=== PATIENT | female | born 1970 | race Caucasian/White ===

== ENCOUNTER 2021-01-30 16:06 | Emergency (ER) | payer MEDICARE, MEDICAID, SELFPAY ==
--- NOTE | ~2021-01-30 | XR_ITS ---
EXAMINATION: XR CHEST CLINICAL INFORMATION: Dyspnea COMPARISON: Chest radiograph 09/04/2015 TECHNIQUE: Frontal view of the chest was obtained. FINDINGS: No significant abnormality is noted involving the heart, lungs, mediastinum, bony thorax or soft tissues. XR/XR chest 1V IMPRESSION: Unremarkable examination.
--- NOTE | 2021-01-30 16:14 | ECG_ITS ---
Test Reason : CHEST PAIN Blood Pressure : / mmHG Vent. Rate : 089 BPM Atrial Rate : 089 BPM P-R Int : 134 ms QRS Dur : 086 ms QT Int : 366 ms P-R-T Axes : 045 002 022 degrees QTc Int : 445 ms Normal sinus rhythm Normal ECG When compared with ECG of 02-NOV-2017 10:18, No significant change was found Referred By: Cat Feng Electronically Signed By:AMADOR GOMES
--- NOTE | 2021-01-30 16:14 | ED_ITS ---
HPI - URI/Sore Throat General Chief Complaint: General Medical Stated Complaint: covid+,cough,bodyaches Time Seen by Provider: 01/30/21 16:08 Source: patient Mode of arrival: ambulatory Limitations: no limitations History of Present Illness HPI Narrative: 50-year-old female presents with upper respiratory symptoms c onsistent with her positive COVID-19 diagnosis yesterday, also reports chest pain and fatigue. MD elicited complaint: fever, cough, sore throat and nasal congestion Onset (ago): day(s) (1) Consistency: constant Severity: moderate Description of mucous: clear and watery Able to tolerate fluids by mouth: Yes Exacerbating factors: exertion Relieving factors: nothing Associated symptoms: fever, chills, myalgias, headache, nasal congestion, cough and chest pain Treatments prior to arrival: none Related Data Allergies Allergy/AdvReac Type Severity Reaction Status Date / Time No Known Allergies Allergy Unverified 02/08/20 16:29 [No Known Allergies*] Review of Systems Review of Systems: Constitutional: positive Fever, positive Chills, positive fatigue, positive Malaise ENT/Mouth: positive sore throat, positive runny nose Eyes: No Discharge Cardiovascular: Positive Chest Pain, positive SOB Respiratory: Positive Cough, No Sputum, No Wheezing, No Smoke Exposure, No Dyspnea Gastrointestinal: No Nausea, No Vomiting, No Diarrhea Genitourinary: no irregular bleeding, No Dysuria, No Urinary Frequency, No Hematuria, No Urinary Incontinence, No Urgency, No Flank Pain, Musculoskeletal: positive Myalgia Skin: No rash Neuro: Positive Headache Yes all other systems are reviewed and are negative PMFSH Past Medical History Attestation statement: The following information was validated with the patient. Source: old records reviewed Medical History Depression Diabetes GERD (gastroesophageal reflux disease) Social History Social History Advance Directives: No Patient : No Physical Exam Vital Signs: Vital Signs: Last Vital Signs Temp 99 F 01/30/21 16:23 Pulse 87 01/30/21 16:23 Resp 18 01/30/21 16:23 BP 117/81 01/30/21 16:23 Pulse Ox 99 01/30/21 16:23 Body Mass Index 33.8 Appearance: Alert. Oriented X3. Mild distress. Afebrile. Eyes: Pupils equal, round and reactive to light. Sclera nonicteric. ENT: Pharynx normal. Moist mucous membranes. Neck: Normal inspection. Neck supple. CVS: Normal heart rate and rhythm. Pulses normal. Respiratory: No respiratory distress. Breath sounds normal. Chest wall nontender to palpation. Abdomen: Soft and nontender. Normoactive bowel sounds all 4 quadrants. Skin: Skin warm and dry. Normal skin color. Normal skin turgor. Extremities: No lower extremity edema. Moves all extremities against resistance. Strength 5/5. Neuro: No motor deficit. No sensory deficit. Cranial nerves 2-12 intact. No focal neural deficits. Course Course Course Narrative: 50-year-old female presents with symptoms consistent with COVID-19. Was diagnosed yesterday. States that she now has chest pain and feels very fatigued. Patient is sitting comfortably in her stretcher, even unlabored respirations, 18 breaths per minute, lung sounds clear auscultation, O2 sat 99% on room air, no pain on inspiration. Will obtain labs, chest x-ray and EKG. 6:22 p.m. Chest x-ray is negative, EKG is normal sinus, H&H is 11.0/33.8. Chemistries are pending. MDM - URI/Sore Throat Differential Diagnosis Differential diagnosis: Likely upper respiratory infection, viral infection and pharyngitis Medical Records Attestation: I reviewed the patient's medical records. Lab Data Attestation: I reviewed the patient's lab results. Result diagrams: 01/30/21 17:49 01/30/21 17:49 Labs: Lab Results 01/30/21 01/30/21 01/30/21 Range/Units 17:49 17:49 17:49 WBC 4.9 (4.8-10.8) X10*3/uL RBC 4.08 L (4.20-5.50) X10*6/uL Hgb 11.0 L (12.0-16.0) g/dl Hct 33.8 L (37-47) % MCV 82.8 (80-98) fL MCH 27.0 (27.0-33.0) pg MCHC 32.5 (31.0-35.0) g/dl RDW 13.5 (11.0-16.0) % Plt Count 198 (160-400) X10*3/uL MPV 11.3 (9.4-12.3) fL Immature Gran % (Auto) 0.2 (0.0-0.4) % Neut % (Auto) 55.5 (45-73) % Lymph % (Auto) 37.8 (20-40) % [place] % (Auto) 5.9 (2-11) % Eos % (Auto) 0.4 (0-4) % Baso % (Auto) 0.2 (0-2) % Lymph # (Auto) 1.9 (1.2-4.9) X10*3/uL [place] # (Auto) 0.3 (0.1-1.2) X10*3/uL Eos # (Auto) 0.0 (0.0-0.4) X10*3/uL Baso # (Auto) 0.0 (0.0-0.2) X10*3/uL Abs Immat Gran (auto) 0.01 (0.00-0.03) X10*3/uL Absolute Neuts (auto) 2.7 (2.0-8.3) X10*3/uL Absolute Nucleated RBC 0.000 (0.0-0.012) X10*3/uL Nucleated RBC % (auto) 0.0 (0.0-0.2) /100WBC Sodium 142 (135-145) mmol/L Potassium 3.5 (3.3-5.1) mmol/L Chloride 108 (96-108) mmol/L Carbon Dioxide 25 (22-29) mmol/L Anion Gap 13 (12-20) BUN 8 L (9-16) mg/dL Creatinine 0.79 (0.5-1.4) mg/dL Estim Creat Clear Calc 85.5 Estimated GFR > 60 Random Glucose 97 (60-115) mg/dL Calcium 9.5 (8.4-10.2) mg/dL Troponin I High Sens < 3.5 (<3.5-17.0) ng/L Imaging Data Chest x-ray: Attestation: I personally reviewed and interpreted this imaging study as follows: Radiologist's impression: EXAMINATION: XR CHEST CLINICAL INFORMATION: Dyspnea COMPARISON: Chest radiograph 09/04/2015 TECHNIQUE: Frontal view of the chest was obtained. FINDINGS: No significant abnormality is noted involving the heart, lungs, mediastinum, bony thorax or soft tissues. XR/XR chest 1V IMPRESSION: Unremarkable examination. ? ECG Data Attestation: I personally reviewed and interpreted this ECG as follows: ECG interpretation date: 01/30/21 ECG interpretation time: 17:53 Prior ECG tracings: available for review Interpretation: Vent. rate 89 BPM AL interval 134 ms QRS duration 86 ms QT/QTc 366/445 ms P-R-T axes 45 2 22 Normal sinus rhythm Normal ECG When compared with ECG of 02-NOV-2017 10:18, No significant change was found Discharge Plan Discharge Clinical Impression: COVID-19, Non-cardiac chest pain Patient Disposition: Home, Self-Care Instructions: Noncardiac Chest Pain (ED), COVID-19 (Coronavirus Disease 2019) (ED) Additional Instructions: You were evaluated for symptoms consistent with COVID-19. Your EKG is normal sinus rhythm, your cardiac enzymes are negative. You are positive for COVID-19. Please maintain social isolation per State and Federal guidelines. Is your responsibility to maintain these guidelines. Thank you for choosing this emergency department for evaluation. Please follow-up with primary care physician as needed. Return to the emergency de partment for any new, concerning, or worsening symptoms.
[2021-01-30 16:23] VITALS: BP 117/81; BP 134/90; PULSE 87; RESP 18; TEMP 37.2; O2SAT 100; O2SAT 99; BMI 33.8
[2021-01-30 18:02] LABS: MANUAL DIFF FLAG NO
[2021-01-30 18:05] LABS: Basophils Percent Auto 0.2 % (0-2); Eosinophils Percent Auto 0.4 % (0-4); Hematocrit 33.8 % (37-47); Imm Gran Abs Auto 0.01 X10*3/uL (0.00-0.03); Imm Gran Pct Auto 0.2 % (0.0-0.4); Lymphocytes Absolute Auto 1.9 X10*3/uL (1.2-4.9); Lymphocytes Percent Auto 37.8 % (20-40); Mean Corpuscular HGB Conc 32.5 g/dl (31.0-35.0); Mean Corpuscular Volume 82.8 fL (80-98); Mean Platelet Volume 11.3 fL (9.4-12.3); Monocytes Absolute Auto 0.3 X10*3/uL (0.1-1.2); Monocytes Percent Auto 5.9 % (2-11); Neutrophils Absolute Auto 2.7 X10*3/uL (2.0-8.3); Neutrophils Percent Auto 55.5 % (45-73); Platelet Count 198 X10*3/uL (160-400); Red Blood Count 4.08 X10*6/uL (4.20-5.50); Red Cell Distribution Width 13.5 % (11.0-16.0); White Blood Count 4.9 X10*3/uL (4.8-10.8)
[2021-01-30 18:17] LABS: Anion Gap 13 (12-20); Blood Urea Nitrogen 8 mg/dL (9-16); Calcium 9.5 mg/dL (8.4-10.2); Carbon Dioxide 25 mmol/L (22-29); Chloride 108 mmol/L (96-108); Creatinine Clr Calc Pharmacy 85.5; Estimated Glomerular Filt Rate > 60; Glucose Random 97 mg/dL (60-115); Potassium 3.5 mmol/L (3.3-5.1); Sodium 142 mmol/L (135-145)
[2021-01-30 18:23] LABS: Troponin-I High Sensitivity < 3.5 ng/L (<3.5-17.0)
[2021-01-30 19:24] VITALS: BP 117/80; PULSE 85; O2SAT 97
== END 2021-01-30 19:26 | disposition home or self-care (01) ==
PROVIDERS: Nurse Practitioner Family; Emergency Provider Emergency Medicine
DX: R07.89 Other chest pain (principal); U07.1 COVID-19
CPT/HCPCS: 36415; 71045; 80048; 84484; 85025; 93005; 99283

== ENCOUNTER 2022-01-23 11:01 | Emergency (ER) | payer MEDICARE, MEDICAID, SELFPAY ==
--- NOTE | ~2022-01-23 | XR_ITS ---
EXAMINATION: XR CHEST CLINICAL INFORMATION: Chest pain COMPARISON: Chest radiographs 01/30/2021, 07/06/2015, 09/21/2013. TECHNIQUE: Portable upright AP view of the chest was obtained. FINDINGS: No pneumothorax, pleural reaction, airspace opacities, or effusion. Heart size normal. Costophrenic sulci are clear. Hilar and mediastinal contours are normal. No visible acute bony abnormality. XR/XR chest 1V IMPRESSION: Unremarkable examination.
--- NOTE | ~2022-01-23 | CT_ITS ---
EXAMINATION: CT HEAD WITHOUT CONTRAST CLINICAL INFORMATION: Headache. COMPARISON: Head CTs dating between November 10, 2017 and October 06, 2011. TECHNIQUE: Contiguous axial imaging was performed from the skull base to vertex without intravenous administration of contrast. This CT examination was performed using dose optimization techniques as appropriate, variously including the following: *Automated exposure control *Adjustment of mA and/or kV according to patient size (this includes techniques or standardized protocols for targeted exams where dose is matched to indication/reason for exam; i.e. extremities or head) *Use of iterative reconstruction technique DLP: 633 mGy-cm FINDINGS: No intracranial hemorrhage, large infarction, or mass lesion is seen. No extra-axial collection is appreciated. The ventricles are normal in size and configuration without evidence of hydrocephalus. The visualized paranasal sinuses and mastoid air cells are clear. CT/CT head/brain wo IV con IMPRESSION: Normal noncontrast CT scan of the brain.
--- NOTE | 2022-01-23 11:02 | ECG_ITS ---
Test Reason : cp Blood Pressure : / mmHG Vent. Rate : 088 BPM Atrial Rate : 088 BPM P-R Int : 130 ms QRS Dur : 084 ms QT Int : 368 ms P-R-T Axes : 050 -06 046 degrees QTc Int : 445 ms Normal sinus rhythm Normal ECG When compared with ECG of 30-JAN-2021 17:53, No significant change was found Referred By: Generic ED Physician Electronically Signed By:AMADOR GOMES
[2022-01-23 11:03] VITALS: BP 136/94; BP 138/85; PULSE 104; PULSE 84; RESP 19; TEMP 37.1; O2SAT 97; BMI 31.6
--- NOTE | 2022-01-23 11:43 | ED.CHESTPAIN ---
HPI - Chest Pain General Chief Complaint: Chest Pain Stated Complaint: CHEST PAIN Time Seen by Provider: 01/23/22 11:43 Source: patient Mode of arrival: ambulatory Limitations: no limitations History of Present Illness HPI narrative: 51 yo female with hx of DM, HTN, dealing with R sided headaches for the past 3 months - sees her doctor in [place] not on any medications plan was for outpatient MRI at some point. Notes worsening R sided headache x 3 days not responding to tylenol. She was at rest when this happened no trauma, fevers or injury. States she has not had any brain imaging. Also felt some lip tingling of both lips, tingling in arms, chest pressure starting this AM. complaint: other (headache) Onset (ago): day(s) (3) Timing of current episode: constant Prior episodes: Yes Onset: during rest Pain location: other (R side of head) Pain radiation: none Severity: moderate Quality: other (throbbing) Relieving factors: nothing Exacerbating factors: other (light noise) Context: other (hx of similar episodes) Associated symptoms: nausea Treatment prior to arrival: none Related Data Previous Rx's Medication Instructions Recorded stmpronnqh-ovdzzcjktzctn-fkdosusm 1 tab PO Q6H PRN pain #20 tabs 01/23/22 50 mg-325 mg-40 mg tablet cyclobenzaprine 10 mg tablet 10 mg PO TID PRN muscle spasm #14 01/23/22 tabs ondansetron 4 mg disintegrating 4 mg PO Q8H PRN nausea and 01/23/22 tablet vomiting #20 tabs Allergies Allergy/AdvReac Type Severity Reaction Status Date / Time No Known Allergies Allergy Unverified 02/08/20 16:29 [No Known Allergies*] Review of Systems Review of Systems: Constitutional : No Fever, No Chills, No Fatigue ENT/Mouth : No sore throat, No Rhinorrhea Eyes: No Eye Pain, No Swelling, No Redness Cardiovascular : No Chest Pain, No SOB, No Dyspnea on Exertion Respiratory : No Cough, No Sputum Gastrointestinal : pos Nausea, No Vomiting, No Diarrhea, No abdominal Pain Genitourinary : No Dysuria, No Urinary Frequency, No Hematuria, Musculoskeletal : No joint pain, No Myalgias, No Joint Swelling Skin : No Skin Lesions, No rash Neuro : No Weakness, No Numbness, No Dizziness, positive Headache Psych : No Anxiety/Panic, No Depression Heme/Lymph: No Bruising, No Bleeding,No Lymphadenopathy Endocrine : No Polyuria, No Polydipsia All other systems reviewed and are negative [facility] Past Medical History Attestation statement: The following information was validated with the patient. Medical History Depression Diabetes GERD (gastroesophageal reflux disease) Social History Social History (Updated 01/23/22 @ 12:30 by Doreen Mahoney DO) Patient Tobacco Use Status: Never used Tobacco Advance Directives: No Advance Directives Information Provided: No Physical Exam Vital Signs: Vital Signs: Last Vital Signs Temp 98.2 F 01/23/22 12:26 Pulse 82 01/23/22 12:26 Resp 15 01/23/22 12:26 BP 145/88 H 01/23/22 12:26 Pulse Ox 99 01/23/22 12:26 O2 Del Method 01/23/22 12:26 BMI result Body Mass Index 31.6 Appearance: Alert. Oriented X3. No acute distress. Eyes: Pupils equal, round and reactive to light. ENT: Pharynx normal. Neck: Normal inspection. Neck supple. no meningeal signs CVS: Normal heart rate and rhythm. Pulses normal. Respiratory: No respiratory distress. Breath sounds normal. Abdomen: Soft and nontender. Skin: Skin warm and dry. Normal skin color. Normal skin turgor. Extremities: No lower extremity edema. No calf ttp Neuro: Oriented X 3. No motor deficit. No sensory deficit. Course Course Course Narrative: CT head negative, EKG and trop flat/nonischemic feels better stable for DC MDM - Chest Pain MDM Narrative Medical decision making narrative: 51 yo female with hx of HTN, DM here with gradual onset R sided headache - at this time given chronicity of complaints doubt SAH or [employer] infection will obtain CT head for mass - treat symptoms. ALso c/o atypical chest pain will obtain troponin x 1. Dispo per results and findings. Lab Data Result diagrams: 01/23/22 12:09 01/23/22 12:09 Labs: Lab Results 01/23/22 01/23/22 01/23/22 Range/Units 12:09 12:09 12:09 WBC 6.6 (4.8-10.8) X10*3/uL RBC 4.62 (4.20-5.50) X10*6/uL Hgb 13.8 (12.0-16.0) g/dl Hct 40.5 (37.0-47.0) % MCV 87.7 (80.0-98.0) fL MCH 29.9 (27.0-33.0) pg MCHC 34.1 (31.0-35.0) g/dl RDW 13.2 (11.0-16.0) % Plt Count 247 (160-400) X10*3/uL MPV 10.6 (9.4-12.3) fL Immature Gran % (Auto) 0.2 (0.0-0.4) % Neut % (Auto) 67.6 (45-73) % Lymph % (Auto) 25.0 (20-40) % [place] % (Auto) 5.0 (2-11) % Eos % (Auto) 1.7 (0-4) % Baso % (Auto) 0.5 (0-2) % Lymph # (Auto) 1.7 (1.2-4.9) X10*3/uL [place] # (Auto) 0.3 (0.1-1.2) X10*3/uL Eos # (Auto) 0.1 (0.0-0.4) X10*3/uL Baso # (Auto) 0.0 (0.0-0.2) X10*3/uL Abs Immat Gran (auto) 0.01 (0.00-0.03) X10*3/uL Absolute Neuts (auto) 4.5 (2.0-8.3) x10*3/uL Absolute Nucleated RBC 0.000 (0.0-0.012) X10*3/uL Nucleated RBC % (auto) 0.0 (0.0-0.2) /100WBC Sodium 138 (135-145) mmol/L Potassium 4.2 (3.3-5.1) mmol/L Chloride 103 (96-108) mmol/L Carbon Dioxide 26 (22-29) mmol/L Anion Gap 13 (12-20) BUN 8 L (9-16) mg/dL Creatinine 0.81 (0.5-1.4) mg/dL Estim Creat Clear Calc 79.6 Estimated GFR > 60 Random Glucose 188 H (60-115) mg/dL Calcium 9.4 (8.4-10.2) mg/dL Troponin I High Sens < 3.5 (<3.5-17.0) ng/L ECG Data ECG #1: Attestation: I personally reviewed and interpreted this ECG as follows: ECG interpretation date: 01/23/22 ECG interpretation time: 11:44 Interpretation: Rate: 88 Rhythm: NSR [place]: left Normal P waves. Normal BERNARDA. Normal QRS complex. ST T wave : nonspecific V1/V2, no [place] qTC: normal prior studies: no acute ischemia The study has been interpreted contemporaneously by me. . Discharge Plan Discharge Clinical Impression: Atypical chest pain Migraine Qualifiers: Migraine type: without aura Status migrainosus presence: without status migrainosus Intractability: not intractable Qualified Code(s): G43.009 - Migraine without aura, not intractable, without status migrainosus Patient Disposition: Home, Self-Care Instructions: Chest Pain (ED), Migraine Headache (ED) Additional Instructions: return to ED for any worsening symptoms or concerns CT scan normal please follow up with your doctor in [place] in regards to your headaches Prescriptions: New cyclobenzaprine 10 mg tablet 10 mg PO TID PRN (Reason: muscle spasm) Qty: 14 0RF pfboyyywmt-bqcaeonkfpzlf-csup 50-325-40 mg tablet 1 tab PO Q6H PRN (Reason: pain) Qty: 20 0RF ondansetron 4 mg tablet,disintegrating 4 mg PO Q8H PRN (Reason: nausea and vomiting) Qty: 20 0RF
[2022-01-23 12:16] LABS: MANUAL DIFF FLAG NO
[2022-01-23 12:18] LABS: Basophils Percent Auto 0.5 % (0-2); Eosinophils Absolute Auto 0.1 X10*3/uL (0.0-0.4); Eosinophils Percent Auto 1.7 % (0-4); Hematocrit 40.5 % (37.0-47.0); Hemoglobin 13.8 g/dl (12.0-16.0); Imm Gran Abs Auto 0.01 X10*3/uL (0.00-0.03); Imm Gran Pct Auto 0.2 % (0.0-0.4); Lymphocytes Absolute Auto 1.7 X10*3/uL (1.2-4.9); Mean Corpuscular HGB Conc 34.1 g/dl (31.0-35.0); Mean Corpuscular Hemoglobin 29.9 pg (27.0-33.0); Mean Corpuscular Volume 87.7 fL (80.0-98.0); Mean Platelet Volume 10.6 fL (9.4-12.3); Monocytes Absolute Auto 0.3 X10*3/uL (0.1-1.2); Neutrophils Absolute Auto 4.5 x10*3/uL (2.0-8.3); Neutrophils Percent Auto 67.6 % (45-73); Platelet Count 247 X10*3/uL (160-400); Red Blood Count 4.62 X10*6/uL (4.20-5.50); Red Cell Distribution Width 13.2 % (11.0-16.0); White Blood Count 6.6 X10*3/uL (4.8-10.8)
[2022-01-23] MEDS: Ketorolac Tromethamine 30 MG/ML VIAL IVPUSH (12:20)
[2022-01-23] MEDS: diphenhydrAMINE HCL 50 MG/ML VIAL 25 MG IVPUSH (12:20)
[2022-01-23] MEDS: Metoclopramide HCl 10 MG/2 ML VIAL IVPUSH (12:20)
[2022-01-23 12:26] VITALS: BP 145/88; PULSE 82; RESP 15; TEMP 36.8; O2SAT 99
[2022-01-23 12:33] LABS: Anion Gap 13 (12-20); Blood Urea Nitrogen 8 mg/dL (9-16); Calcium 9.4 mg/dL (8.4-10.2); Carbon Dioxide 26 mmol/L (22-29); Chloride 103 mmol/L (96-108); Creatinine Clr Calc Pharmacy 79.6; Estimated Glomerular Filt Rate > 60; Glucose Random 188 mg/dL (60-115); Potassium 4.2 mmol/L (3.3-5.1); Sodium 138 mmol/L (135-145)
[2022-01-23] MEDS: Lactated Ringers 1,000 ML 999 ML IV (12:35)
[2022-01-23 12:40] LABS: Troponin-I High Sensitivity < 3.5 ng/L (<3.5-17.0)
[2022-01-23] MEDS: Butalb/Acetamin/Caff 50/325/40 TABLET 1 TAB PO (14:22)
[2022-01-23] MEDS: Cyclobenzaprine HCl 10 MG TABLET PO (14:22)
[2022-01-23 14:24] VITALS: BP 136/97; PULSE 76; RESP 13
== END 2022-01-23 14:56 | disposition home or self-care (01) ==
PROVIDERS: Emergency Provider Emergency Medicine
DX: R07.89 Other chest pain (principal); G43.009 Migraine without aura, not intractable, without status migrainosus; I10 Essential (primary) hypertension; Z79.899 Other long term (current) drug therapy
CPT/HCPCS: 36415; 70450; 71045; 80048; 84484; 85025; 93005; 96361; 96374; 96375; 99284; J1200; J1885; J2765